=== PATIENT | female | born 1975 | race Caucasian/White ===

== ENCOUNTER 2020-05-25 09:27 | Emergency (ER) | payer OTHER ==
[~2020-05-25] VITALS: Ht 167.6 cm; Wt 146.1 kg
[~2020-05-25 09:27] MED LIST: Ativan1 MG PO; BIRTH CONTROL PILLS; Bactrim Ds Tab1 EACH PO; CIPR500 PO; HYDR1TAB94 PO; LAMO100 PO; LATUDA20 MG PO; LEVSOD100 PO; Norco 5-325 Ta1 EACH PO; OMEP20ER PO; OXYACE5T PO; PROM25 PO; RISP4 PO
[2020-05-25] MEDS ORDERED: REXULTI2 MG PO (09:48)
[2020-05-25] MEDS ORDERED: ATIVAN0.5 MG PO (12:23)
== END 2020-05-25 12:36 | disposition home or self-care (01) ==
LOC: ER 09:27
DX: F41.9 Anxiety disorder, unspecified (principal); G47.00 Insomnia, unspecified; Z79.899 Other long term (current) drug therapy
CPT/HCPCS: 99285; A9270

== ENCOUNTER → 2020-07-13 | Outpatient (CLI) | payer OTHER ==
[~2020-07-13] MED LIST changes: +ATIVAN0.5 MG PO; +REXULTI2 MG PO
[2020-07-13 09:15] LABS: BASOPHILS ABSOLUTE AUTO 0.04 K/mm3 (0.00-0.23); BASOPHILS PERCENT AUTO 1 % (0-2); EOSINOPHILS ABSOLUTE AUTO 0.16 K/mm3 (0.00-0.68); EOSINOPHILS PERCENT AUTO 2 % (0-6); Hematocrit 38.5 % (33.0-51.0); IMMATURE GRAN ABSOLUTE AUTO 0.03 K/mm3 (0.00-0.10); IMMATURE GRAN PERCENT AUTO 0 % (0-1); LYMPHOCYTES ABSOLUTE AUTO 2.46 K/mm3 (0.84-5.20); LYMPHOCYTES PERCENT AUTO 34 % (21-46); MONOCYTES ABSOLUTE AUTO 0.47 K/mm3 (0.16-1.47); MONOCYTES PERCENT AUTO 6 % (4-13); Mean Corpuscular HGB 29.5 pg (26.0-34.0); Mean Corpuscular HGB Conc 33.8 g/dL (31.5-36.5); Mean Corpuscular Volume 87 fL (80-100); Mean Platelet Volume 10.3 fL (9.1-12.4); NEUTROPHILS ABSOLUTE AUTO 4.17 K/mm3 (1.96-9.15); NEUTROPHILS PERCENT AUTO 57 % (41-73); Platelet Count 284 K/mm3 (150-400); RDW Coefficient Variation 12.5 % (11.7-14.2); RDW Standard Deviation 39.7 fL (35.1-46.3); Red Blood Cell Count 4.41 M/mm3 (3.80-5.20); White Blood Cell Count 7.33 K/mm3 (4.00-11.30)
[2020-07-13 09:34] LABS: Alanine Aminotransfer (ALT/SGP 21 U/L (12-78); Albumin, Blood 3.6 g/dL (3.4-5.0); Albumin/Globulin Ratio 0.9 (0.8-1.8); Alk Phos 73 U/L (40-126); Anion Gap 9 mmol/L (6-16); Aspartate Aminotrans (AST/SGOT 16 U/L (12-37); Bilirubin, Total 0.5 mg/dL (0.1-1.0); Blood Urea Nitrogen 11 mg/dL (8-24); Bun/Creatinine Ratio 11.5 (12.0-20.0); CO2, Blood 23 mmol/L (21-32); Calcium, Blood 8.9 mg/dL (8.5-10.1); Chloride, Blood 103 mmol/L (98-108); Creatinine, Blood 0.96 mg/dL (0.40-1.00); Globulin, Blood 4.1 g/dL (2.2-4.0); Glomerular Filtration Rate >60 (60-); Glucose, Blood 93 mg/dL (70-99); Sodium, Blood 135 mmol/L (136-145); Total Protein, Blood 7.7 g/dL (6.4-8.2)
== END | disposition home or self-care (01) ==
LOC: LAB SHORT 09:00
PROVIDERS: Physician Assistant
DX: K92.0 Hematemesis (principal)
CPT/HCPCS: 80053; 83690; 85025